=== PATIENT | male | born 1940 | race Caucasian/White ===

== ENCOUNTER 2017-07-14 12:54 | Outpatient (CLI) | payer MEDICARE, OTHER ==
[2017-07-14] MEDS ORDERED: Gadobenate Dimeglumine 529 MG/1 ML (20ML VIAL) ONE (13:36)
--- NOTE | 2017-07-14 19:28 | MRI ---
MRI OF THE LUMBAR SPINE WITH AND WITHOUT CONTRAST 07/14/17 Multiplanar and multisequential imaging of the lumbar spine obtained. Postcontrast images were obtai breanne after the administration of 18 mL of Multihance IV. HISTORY: Lumbar spinal stenosis. Back pain with left leg pain. Comparison made to lumbar spine MRI of 05/10/13. FINDINGS: Moderate degenerative changes throughout the lumbar spine. Mild anterior wedging of the T12-L1, L2 a nd L3 vertebrae. Prominent anterior osteophytes. Loss of disc space at all levels. There is posterol isthesis of L2 on L3 and posterior subluxation of L3 on L4. Slight anterior subluxation at L4-5. The se findings have not significantly changed from the prior exam. At L1-2, no significant disc bulge and no central canal or foraminal stenosis. At L2-3, posterolisthesis is associated with a broad based disc bugle which is associated with facet and ligamentous hypertrophy and results in moderate central canal stenosis. This does not appear si gnificantly changed in degree when compared to the prior study. At L3-4, posterolisthesis associated with diffuse disc bulge and combined with facet hypertrophy res ults in mild central canal stenosis. Bilateral foraminal stenosis is prominent at this level but was also noted previously. Postop laminectomy changes are noted. At L4-5, mild anterolisthesis. Diffuse disc bulge. Facet hypertrophy is prominent. Moderate to sever e central canal stenosis which is similar to the prior exam. Bilateral foraminal stenosis more sever e on the right. Postop laminectomy changes. At L5-S1, diffuse disc bulge is again seen. Facet hypertrophy. The broad based bulge is more pronoun wilver to the left and there is left foraminal encroachment and contact with exiting left L5 nerve root . Mild central canal stenosis which does not appear significantly changed. IMPRESSION: Multilevel degenerative changes with central canal stenosis at L2-3, L3-4, and L4-5 as described abo letty. POS: DC
== END 2017-07-14 12:55 | disposition home or self-care (01) ==
LOC: TBSIIMAG 12:54
PROVIDERS: ATTEND Neurological Surgery
DX: M48.061 Spinal stenosis, lumbar region without neurogenic claudication (principal); M43.06 Spondylolysis, lumbar region
CPT/HCPCS: 72158; A9579